=== PATIENT | male | born 1980 | race American Indian/Alaskan Native ===

== ENCOUNTER 2017-06-29 23:02 | Emergency (ER) | payer MEDICAID ==
[2017-06-29] MEDS ORDERED: Flumazenil 0.1 MG/ML 5 ML MDV IVPUSH PRN (23:08)
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
== END 2017-06-30 02:00 | disposition home or self-care (01) ==
LOC: JP.ED 23:02
DX: T42.4X4A Poisoning by benzodiazepines, undetermined, initial encounter (principal)
CPT/HCPCS: 36415; 80053; 80305; 85025; 96374; 99285-25; J3490